=== PATIENT | female | born 1960 | race Caucasian/White ===

== ENCOUNTER → 2019-04-06 | Outpatient (CLI) | payer MEDICARE, OTHER | LOC: LAB SHORT 17:35 → LAB EV 17:35 | DX: N39.0 Urinary tract infection, site not specified (principal) | CPT/HCPCS: 87077; 87086; 87186 ==

== ENCOUNTER → 2019-04-13 | Outpatient (CLI) | payer MEDICARE, OTHER | LOC: LAB EV 11:16 → LAB SHORT 11:16 | DX: N39.0 Urinary tract infection, site not specified (principal) | CPT/HCPCS: 87077; 87086; 87186 ==

== ENCOUNTER → 2019-04-23 | Outpatient (CLI) | payer MEDICARE, OTHER ==
[2019-04-23 19:24] LABS: Bilirubin, Urine Neg (Neg); Blood, Urine 3+ (Neg); Glucose Qualitative, Urine Neg (Neg); Ketones, Urine Neg (Neg); Leukocyte Esterase, Urine 3+ (Neg); Nitrite, Urine Neg (Neg); Protein, Urine 2+ (Neg); Urobilinogen, Urine NORM (Normal)
[2019-04-23 19:44] LABS: Appearance, Urine Cloudy (Clear); Bacteria Many /hpf; Color, Urine Yellow (P-Yellow); Squamous Epithelial Cells Few /hpf (Few); White Blood Cells, Urine 25-50 /hpf (0-5)
[2019-04-23 19:45] LABS: Amorphous Light (0-Heavy)
== END ==
LOC: LAB SHORT 18:29 → LAB 18:29
PROVIDERS: Family Medicine
DX: N39.0 Urinary tract infection, site not specified (principal)
CPT/HCPCS: 81001; 87077; 87086; 87186

== ENCOUNTER → 2019-06-04 | Outpatient (CLI) | payer MEDICARE, OTHER ==
[2019-06-04 15:20] LABS: Source, Urine Clean Catch
[2019-06-04 17:54] LABS: Bilirubin, Urine Neg (Neg); Blood, Urine Neg (Neg); Glucose Qualitative, Urine Neg (Neg); Ketones, Urine 1+ (Neg); Leukocyte Esterase, Urine 2+ (Neg); Nitrite, Urine Neg (Neg); Protein, Urine 1+ (Neg); Urobilinogen, Urine NORM (Normal)
[2019-06-04 18:12] LABS: Appearance, Urine Clear (Clear); Color, Urine Yellow (P-Yellow)
[2019-06-04 18:27] LABS: Bacteria Many /hpf; Red Blood Cells, Urine Not Seen /hpf (0-2); Squamous Epithelial Cells Rare /hpf (Few)
[2019-06-04 18:28] LABS: Hyaline Casts 0-2 /lpf (0-2); Mucus Mod (0-Heavy)
== END ==
LOC: LAB SRC 15:18 → LAB SHORT 15:18
PROVIDERS: Family Medicine
DX: N39.0 Urinary tract infection, site not specified (principal)
CPT/HCPCS: 81001; 87077; 87086; 87186

== ENCOUNTER → 2019-12-22 | Outpatient (CLI) | payer MEDICARE, OTHER | END | disposition home or self-care (01) | LOC: LAB SHORT 14:00 → LAB SRC 14:00 | DX: N39.0 Urinary tract infection, site not specified (principal); R33.9 Retention of urine, unspecified | CPT/HCPCS: 87086 ==

== ENCOUNTER → 2020-09-07 | Outpatient (CLI) | payer MEDICARE, OTHER | END | disposition home or self-care (01) | LOC: LAB SHORT 15:24 → LAB 15:24 | DX: Z46.6 Encounter for fitting and adjustment of urinary device (principal); N39.0 Urinary tract infection, site not specified; R33.9 Retention of urine, unspecified | CPT/HCPCS: 87077; 87086; 87186 ==

== ENCOUNTER → 2020-09-27 | Outpatient (CLI) | payer MEDICARE, OTHER | END | disposition home or self-care (01) | LOC: LAB 11:30 → LAB SHORT 11:30 | DX: T83.511A Infection and inflammatory reaction due to indwelling urethral catheter, initial encounter (principal); N39.0 Urinary tract infection, site not specified | CPT/HCPCS: 87077; 87086; 87186 ==

== ENCOUNTER → 2021-07-17 | Outpatient (CLI) | payer MEDICARE, OTHER ==
[2021-07-17 12:54] LABS: Source, Urine Foley catheter
[2021-07-17 17:48] LABS: Appearance, Urine Hazy (Clear); Bilirubin, Urine Neg (Neg); Blood, Urine 2+ (Neg); Color, Urine Yellow (P-Yellow); Glucose Qualitative, Urine Neg (Neg); Ketones, Urine Neg (Neg); Leukocyte Esterase, Urine 2+ (Neg); Nitrite, Urine Pos (Neg); Protein, Urine Neg (Neg); Urobilinogen, Urine NORM (Normal)
[2021-07-17 17:58] LABS: Bacteria Many /hpf; Granular Casts 0-2 /lpf (0); Hyaline Casts 0-2 /lpf (0-2); Squamous Epithelial Cells Many /hpf (Few); White Blood Cells, Urine 25-50 /hpf (0-5)
== END | disposition home or self-care (01) ==
LOC: LAB SHORT 12:52
PROVIDERS: Physician Assistant
DX: N39.0 Urinary tract infection, site not specified (principal)
CPT/HCPCS: 81001; 87077; 87086; 87186

== ENCOUNTER → 2022-01-04 | Outpatient (CLI) | payer OTHER | END | disposition home or self-care (01) | LOC: LAB 15:25 → LAB SHORT 15:25 | DX: R35.0 Frequency of micturition (principal) | CPT/HCPCS: 87077; 87086; 87186 ==

== ENCOUNTER 2022-03-09 00:25 | Day surgery (SDC) | payer OTHER | END 2022-03-09 23:19 | disposition home or self-care (01) | LOC: WOUND 00:25 | DX: L89.893 Pressure ulcer of other site, stage 3 (principal); L97.512 Non-pressure chronic ulcer of other part of right foot with fat layer exposed; I10 Essential (primary) hypertension; R60.9 Edema, unspecified; G82.20 Paraplegia, unspecified; Z87.891 Personal history of nicotine dependence | CPT/HCPCS: G0463 ==

== ENCOUNTER 2022-03-16 01:08 | Day surgery (SDC) | payer OTHER | END 2022-03-16 23:18 | disposition home or self-care (01) | LOC: WOUND 01:08 | DX: L89.513 Pressure ulcer of right ankle, stage 3 (principal); L97.512 Non-pressure chronic ulcer of other part of right foot with fat layer exposed; I10 Essential (primary) hypertension; R60.9 Edema, unspecified; G82.20 Paraplegia, unspecified ==

== ENCOUNTER 2022-03-23 01:57 | Day surgery (SDC) | payer OTHER | END 2022-03-24 23:37 | disposition home or self-care (01) | LOC: WOUND 01:57 | DX: L89.513 Pressure ulcer of right ankle, stage 3 (principal); I10 Essential (primary) hypertension; G82.20 Paraplegia, unspecified ==

== ENCOUNTER 2022-04-13 02:43 | Day surgery (SDC) | payer OTHER | END 2022-04-13 23:18 | disposition home or self-care (01) | LOC: WOUND 02:43 | DX: L89.519 Pressure ulcer of right ankle, unspecified stage (principal); L97.512 Non-pressure chronic ulcer of other part of right foot with fat layer exposed; I10 Essential (primary) hypertension; R60.9 Edema, unspecified; G82.20 Paraplegia, unspecified ==

== ENCOUNTER 2022-05-11 01:07 | Day surgery (SDC) | payer OTHER | END 2022-05-12 22:51 | disposition home or self-care (01) | LOC: WOUND 01:07 | DX: L89.513 Pressure ulcer of right ankle, stage 3 (principal); L89.890 Pressure ulcer of other site, unstageable; L97.512 Non-pressure chronic ulcer of other part of right foot with fat layer exposed; I10 Essential (primary) hypertension; R60.9 Edema, unspecified; G82.20 Paraplegia, unspecified | CPT/HCPCS: A9270; G0463 ==

== ENCOUNTER → 2022-05-14 | Outpatient (CLI) | payer OTHER | END | disposition home or self-care (01) | LOC: LAB 13:00 → LAB SHORT 13:00 | DX: N39.0 Urinary tract infection, site not specified (principal); Z96.0 Presence of urogenital implants | CPT/HCPCS: 87077; 87086; 87186 ==

== ENCOUNTER 2022-06-01 00:25 | Day surgery (SDC) | payer OTHER | END 2022-06-01 23:19 | disposition home or self-care (01) | LOC: WOUND 00:25 | DX: L89.513 Pressure ulcer of right ankle, stage 3 (principal); L89.890 Pressure ulcer of other site, unstageable; I10 Essential (primary) hypertension; R60.9 Edema, unspecified; G82.20 Paraplegia, unspecified | CPT/HCPCS: G0463 ==

== ENCOUNTER 2022-06-22 01:47 | Day surgery (SDC) | payer OTHER | END 2022-06-22 23:01 | disposition home or self-care (01) | LOC: WOUND 01:47 | DX: L89.513 Pressure ulcer of right ankle, stage 3 (principal); I10 Essential (primary) hypertension; R60.9 Edema, unspecified; G82.20 Paraplegia, unspecified | CPT/HCPCS: G0463 ==

== ENCOUNTER 2022-07-06 02:19 | Day surgery (SDC) | payer OTHER | END 2022-07-06 22:51 | disposition home or self-care (01) | LOC: WOUND 02:19 | DX: L89.513 Pressure ulcer of right ankle, stage 3 (principal); I10 Essential (primary) hypertension; R60.9 Edema, unspecified; G82.20 Paraplegia, unspecified ==

== ENCOUNTER 2022-08-02 01:37 | Day surgery (SDC) | payer OTHER | END 2022-08-02 22:57 | disposition home or self-care (01) | LOC: WOUND 01:37 | DX: L89.513 Pressure ulcer of right ankle, stage 3 (principal); I10 Essential (primary) hypertension; R60.9 Edema, unspecified; G82.20 Paraplegia, unspecified | CPT/HCPCS: G0463 ==

== ENCOUNTER 2022-08-16 03:55 | Day surgery (SDC) | payer OTHER | END 2022-08-16 22:45 | disposition home or self-care (01) | LOC: WOUND 03:55 | DX: L89.513 Pressure ulcer of right ankle, stage 3 (principal); I10 Essential (primary) hypertension; R60.9 Edema, unspecified; G82.20 Paraplegia, unspecified | CPT/HCPCS: G0463 ==

== ENCOUNTER 2022-08-23 02:44 | Day surgery (SDC) | payer OTHER | END 2022-08-23 23:40 | disposition home or self-care (01) | LOC: WOUND 02:44 | DX: L89.513 Pressure ulcer of right ankle, stage 3 (principal); I10 Essential (primary) hypertension; G82.20 Paraplegia, unspecified | CPT/HCPCS: G0463 ==

== ENCOUNTER 2022-09-06 03:24 | Day surgery (SDC) | payer OTHER | END 2022-09-06 22:45 | disposition home or self-care (01) | LOC: WOUND 03:24 | DX: L97.512 Non-pressure chronic ulcer of other part of right foot with fat layer exposed (principal); I10 Essential (primary) hypertension; R60.9 Edema, unspecified; G82.20 Paraplegia, unspecified | CPT/HCPCS: G0463 ==

== ENCOUNTER → 2023-04-25 | Outpatient (CLI) | payer OTHER | LOC: LAB 17:41 → LAB SHORT 17:41 | DX: N39.0 Urinary tract infection, site not specified (principal) | CPT/HCPCS: 87077; 87086; 87186 ==

== ENCOUNTER → 2024-04-02 | Outpatient (CLI) | payer OTHER | LOC: LAB SHORT 12:20 → LAB 12:20 | DX: N39.0 Urinary tract infection, site not specified (principal) | CPT/HCPCS: 87077; 87086; 87186 ==

== ENCOUNTER → 2024-07-27 | Outpatient (CLI) | payer OTHER ==
[2024-07-27 12:56] LABS: Source, Urine Voided
[2024-07-27 14:16] LABS: Appearance, Urine Clear (Clear); Bilirubin, Urine Neg (Neg); Blood, Urine 3+ (Neg); Color, Urine Yellow (P-Yellow); Glucose Qualitative, Urine Neg (Neg); Ketones, Urine Neg (Neg); Leukocyte Esterase, Urine Neg (Neg); Nitrite, Urine Pos (Neg); Protein, Urine Neg (Neg); Specific Gravity, Urine 1.015 (1.003-1.022); Urobilinogen, Urine NORM (Normal)
[2024-07-27 14:33] LABS: Bacteria Many /hpf; Red Blood Cells, Urine 0-2 /hpf (0-2); Squamous Epithelial Cells Rare /hpf (Few); White Blood Cells, Urine 0-2 /hpf (0-5)
== END | disposition home or self-care (01) ==
LOC: LAB SHORT 11:30 → LAB 11:30
DX: N39.0 Urinary tract infection, site not specified (principal)
CPT/HCPCS: 81001; 87077; 87086; 87186

== ENCOUNTER 2024-11-12 14:23 | Emergency (ER) | payer OTHER ==
[~2024-11-12] VITALS: Ht 165.1 cm; Wt 77.1 kg
[2024-11-12 14:39] VITALS: BP 132/83
== END 2024-11-12 15:57 | disposition home or self-care (01) ==
LOC: ER 14:23
DX: T19.2XXA Foreign body in vulva and vagina, initial encounter (principal); W44.G9XA Other non-organic objects entering into or through a natural orifice, initial encounter
CPT/HCPCS: 99283